=== PATIENT | female | born 1990 | race Caucasian/White ===

== ENCOUNTER 2022-11-27 10:15 | Outpatient (RCR) | payer OTHER, SELFPAY ==
--- NOTE | 2022-09-21 17:03 | BUPTOPEVAL1 ---
Assessment and note entered by Kaitlin Arauz, PT Evaluation Information Diagnosis mid thoracic strain Onset March Subjective Information Pt was lifting and was rounded in the shoulders due to size of lift Reported Pain Level Pain Score 2: Self Report Assessment PT Clinical Summary Pt presents w/ c/o persistent back pain after lifting approx 6 months ago. Pt has hx of leg length discrepancy has been wearing a lift to correct for years. Today demos abnormal alignment in sitting and standing, muscle spasms and tenderness sean rhomboids, flat thoracic spine with possible anterolisthesis of T7, anterior tilted pelvis, decreased core musculature. Pt will benefit from therapy in order to address deficts, and improve discomfort to return to her normal PLOF. Plan of Care Interventions Check Out for Orthotic/Pr,Electrical Stimulation, Manual Therapy,Neuro Re-education,Patient/ Caregiver Educati,Therapeutic Activities, Therapeutic Exercise,Ultrasound PT Services Indicated Yes Treatment Frequency and 1-2x weekly x 4 weeks Duration These treatments will address the objective and functional deficits as defined above. The patient will be advanced safely and appropriately in order for the patient to progress towards his/her prior level of function. Additional exercises will be introduced and as well as a comprehensive home exercise program upon discharge, if needed, ?to ensure carryover of functional gains achieved in the clinic. This treatment plan has been reviewed and agreement upon by the patient.
--- NOTE | 2022-10-18 13:11 | PTOPPROG ---
Assessment and note entered by Kaitlin Arauz, PT Assessment Status Progress Report Diagnosis mid thoracic strain Onset March Subjective Information Reports has not had to take pain medication in this last week Reports also was doing some step aerobics modified UEs and did well. Still having difficulty with lifting at work. Reports overhead activities is fatigued but not pain Has slept better the last two nights, finding that laying on her sides and back is ok. Feels is 70-80% improved overall doing her therapy exercises improves discomfort Assessment PT Clinical Summary Pt has attended therapy consistently for her mid- thoracic back strain. She reports feeling 75%-80% improved overall, has had to take less pain medication and reports is sleeping better last two nights as well. Cont to report fatigue with UE activities, and has discomfort with lifting required for her job. Cont to demo T4 rotating vertebra, but today reduces more easily, demo's less rhomboid spasm. Pt appears to be making progress however due to her high level of activity and strength required for her normal activities, therapy is requires to continue to return her to her fullest functional level without pain. Plan of Care Interventions Electrical Stimulation,Hot Pack/Cold Pack,Manual Therapy,Patient/Caregiver Educati,Therapeutic Activities,Therapeutic Exercise,Self-Care/Home Management,Other Other Interventions taping PT Services Indicated Yes Treatment Frequency and 1x weekly x 6 visits Duration These treatments will address the objective and functional deficits as defined above. The patient will be advanced safely and appropriately in order for the patient to progress towards his/her prior level of function. Additional exercises will be introduced and as well as a comprehensive home exercise program upon discharge, if needed, ?to ensure carryover of functional gains achieved in the clinic. This treatment plan has been reviewed and agreement upon by the patient.
--- NOTE | 2022-11-27 13:48 | PTOPPROG ---
Assessment and note entered by Yun Lay, PT, DPT Evaluation Information Assessment Status Progress Diagnosis mid thoracic strain Onset March Subjective Information Pt states initial she had pain all of the time, she states now it feels like her muscles are more calm. She states she still has some good days and bad days. She states she has returned to taking medication d/t increases in pain. She thinks the increase in pain is d/t an increase in her activity. She states her pain has been dull and achy for a long time now, she now reports a burning sensation with minor alterations in the sensation of her L arm. Assessment PT Clinical Summary The patient presents to therapy today for her progress report following 9 visits of skilled therapy to treat her thoracic pain. Overall she reports an improvement in her pain but not to where she would like to be. She was educated on the importance of back and trunk strength to support upright posture. She was educated on different stabilization techniques as well as exercises to strengthen her upper back. Pt states she would like to try these exercises on her own for a while prior to deciding if she needs to continue regularly scheduled therapy. Plan of Care Interventions Electrical Stimulation,Hot Pack/Cold Pack,Manual Therapy,Patient/Caregiver Educati,Therapeutic Activities,Therapeutic Exercise,Self-Care/Home Management,Other PT Services Indicated Yes Treatment Frequency and to follow up in 1 month if needed Duration These treatments will address the objective and functional deficits as defined above. The patient will be advanced safely and appropriately in order for the patient to progress towards his/her prior level of function. Additional exercises will be introduced and as well as a comprehensive home exercise program upon discharge, if needed, ?to ensure carryover of functional gains achieved in the clinic. This treatment plan has been reviewed and agreement upon by the patient.
== END 2022-12-19 23:59 | disposition home or self-care (01) ==
LOC: ANHGOSHPT 10:15
PROVIDERS: PCP Internal Medicine; Visit Provider Internal Medicine
DX: S23.3XXD Sprain of ligaments of thoracic spine, subsequent encounter (principal)
CPT/HCPCS: 97014; 97110; 97112; 97140; 97161; 97530; G0283

== ENCOUNTER 2023-10-06 08:34 | Emergency (ER) | payer OTHER, SELFPAY ==
[2023-10-06 08:44] VITALS: BP 118/77; PULSE 85; RESP 16; TEMP 37; O2SAT 100
--- NOTE | 2023-10-06 09:01 | ED.URI ---
HPI - URI/Sore Throat General Stated Complaint: Headache/Loss Vison/Loss Balance History of Present Illness HPI Narrative: patient presents with a 1 day history of a pain behind her left eye. Patient does not have any history of migraines. Patient states this is the worst headache of her life . Patient states yesterday she lost vision in her left eye and had dizziness. Patient denies any toe symptoms at present. Patient is not taking anything [id number] for her symptoms. Patient has no history of headaches or migraines. Related Data Home Medications Medication Instructions Recorded Confirmed copper 380 square mm intrauterine 1 device intrauterine ONCE 10/06/23 10/06/23 device (ParaGard T 380A) Allergies Allergy/AdvReac Type Severity Reaction Status Date / Time No Known Allergies Allergy Unknown Verified 10/06/23 09:04 Review of Systems Review of Systems: CONSTITUTIONAL: Denies fever, chills, or sweats. EYES: Denies visual changes, redness, or discharge. ENT: Denies rhinorrhea, congestion, sore throat, or otalgia. CARDIOVASCULAR: Denies chest pain, palpitations, or edema. RESPIRATORY: Denies cough or dyspnea. GASTROINTESTINAL: Denies abdominal pain, nausea, vomiting, or diarrhea. GENITOURINARY: Denies dysuria or hematuria. SKIN: Denies rash or itching. MUSCULOSKELETAL: Denies back pain, joint pain, or myalgia. NEUROLOGIC: Denies headache, numbness, or weakness. PSYCHIATRIC: Denies anxiety or depression. [facility] Past Medical History Medical History Anxiety Depression Encounter for counseling regarding contraception Encounter for insertion of ParaGard IUD Premenstrual dysphoric disorder Vaginal delivery Surgical History Surgical History S/P dilation and curettage Family History Family History Father Family history of elevated blood lipids Grandparent Diabetes mellitus Other Family history of coronary artery disease Social History Social History Smoking status: Never smoker Second hand tobacco smoke exposure: No Alcohol intake: former Comments At time of signature, agree with nursing past medical, surgical, social and family history. There is no relevant family history pertinent to the presenting complaint Exam Narrative: GENERAL: Well-appearing, well-nourished, and in no acute distress. HEAD: Normocephalic, atraumatic. EYES: PERRLA and EOMI. Patient reports pain behind her left eye ENT: Nares clear, no rhinorrhea or epistaxis. Mucous membranes moist. NECK: Supple. CHEST: Clear to auscultation. No respiratory distress. HEART: Regular rate and rhythm. No murmur heard. Normal peripheral pulses. ABDOMEN: Soft, nontender, nondistended, normal active bowel sounds. EXTREMITIES: Normal range of motion. No edema. SKIN: Warm, dry, no rash. NEURO: No focal deficits. Alert and oriented x3. SPEECH IS CLEAR. NO LANGUAGE DEFICITS. CRANIAL NERVES: PUPILS EQUAL, ROUND, AND REACTIVE TO LIGHT. VISUAL WEN FULL. EXTRA-OCULAR MOVEMENTS INTACT. NO NYSTAGMUS NOTED. FACIAL SENSATION INTACT TO LIGHT TOUCH. FACIAL MOVEMENT FULL AND SYMMETRIC. PALATE MIDLINE. TONGUE MIDLINE, MOVING EQUALLY IN BOTH DIRECTIONS. UVULA IS MIDLINE. SHOULDER SHRUG EQUAL ON BOTH SIDES. BILATERAL HAND GRASP 5/5. GAIT NORMAL. HEEL TO TOE AND TANDEM WALK NORMAL. FINGER TO NOSE NORMAL. NEG ROMBERG. [place] Coma Scale Eye Opening: Spontaneous 4 [place] Coma Scale Motor: Obeys Commands 6 [place] Coma Scale Verbal: Oriented 5 [place] Coma Scale Total 15 Course Course Level of Care: Express Care Visit Vital Signs Vital signs: Vital Signs Temperature 37.0 C 10/06/23 08:44 Pulse Rate 85 10/06/23 08:44 Respiratory Rate 16 10/06/23 08:44 Blood Pressure 118/77 10/06/23
== END 2023-10-06 09:15 | disposition short-term general hospital (02) ==
PROVIDERS: Emergency Provider Nurse Practitioner Family
DX: R51.9 Headache, unspecified (principal)
CPT/HCPCS: 99213; G0463

== ENCOUNTER 2023-11-14 12:30 | Outpatient (RCR) | payer OTHER, SELFPAY ==
--- NOTE | 2023-10-08 16:56 | PTOPEVAL1 ---
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 Had sharp pain initially in her upper back in rib area. In July of 2022 she had an incident where she had a shocking sensation in her spine and has since had it on and off, especially when driving. Does not feel comfortable with hands on top of steering wheel. Did a little bit of therapy and was feeling fairly good overall. She had however stopped all extracurricular activity outside of work. She has not been playing volleyball or independently exercising. After [place] of this year she started some weight loss to challenge herself. Started running routine and ran 2 miles. Was not originally painful but developed over course of the week. Reported Pain Level Pain Score 1: Self Report Assessment PT Clinical Summary Patient presents with thoracic, hip, and cervical mobility deficits. She demonstrates soft tissue limitation and poor thoracic mobilization. Will benefit from skilled therapy to address these deficits to mobilize posterior chain, promote postural strength, and reduce anterior restriction . Plan of Care Interventions Electrical Stimulation,Manual Therapy,Mechanical Traction,Therapeutic Activities,Therapeutic Exercise PT Services Indicated Yes Treatment Frequency and 1-2x/week for 8 visits Duration These treatments will address the objective and functional deficits as defined above. The patient will be advanced safely and appropriately in order for the patient to progress towards his/her prior level of function. Additional exercises will be introduced and as well as a comprehensive home exercise program upon discharge, if needed, ?to ensure carryover of functional gains achieved in the clinic. This treatment plan has been reviewed and agreement upon by the patient.
--- NOTE | 2023-10-08 16:56 | OPREHPOC ---
Outpatient Therapy Plan of Care This is a Multidisciplinary Plan of Care that may contain components documented by all disciplines (PT, OT, and ST.) PT Problem 1 PT Problem #1 Knowledge Deficit PT Goal 1 Goal [place] with HEP Target Visit 4 PT Problem 2 PT Problem #2 Pain PT Goal 1 Goal Report no pain with running activity greater than 1/2 mile PT Problem 3 PT Problem #3 Impaired Flexibility PT Goal 1 Goal Demonstrate 65 degrees of edwin cervical rotation for improve facet glide and reduced muscle restriction Target Visit 8 PT Goal 2 Goal Demonstrate -25 degrees edwin of hamstring restriction to reduce posterior chain resrtriction Target Visit 8 PT Problem 4 PT Problem #4 Impaired Strength PT Goal 1 Goal Improve L shoulder girdle strength to 4+/5 to improve stability with ADL activity Target Visit 8
--- NOTE | 2023-11-14 14:05 | PTOPDC ---
Assessment and note entered by Enrico Hernandez, PT Evaluation Information Assessment Status Discharge Diagnosis Thoracic spine pain Onset March 2022 Subjective Information Reports that she continues to function having both good days and bad days. States that she has had more good than bad, but emphasis on strengthening of periscapular always seems to aggravate her pain . We have emphasized a mobility program for her thoracic and cervical spine as well as hips and she feels comfortable trying it for senior living approach. Reported Pain Level Pain Score 1: Self Report Pain Score 1: Self Report Assessment PT Clinical Summary Patient has seen improvement in cervical mobility and gross spinal mobility. Her exercise program for home is centered around maximizing thoracic mobility and she demonstrate compliance and comfort with it. Patient is suitable for discharge to [facility] at this time. Plan of Care PT Services Indicated D/C to [facility]
--- NOTE | 2023-11-14 14:05 | OPREHPOC ---
Outpatient Therapy Plan of Care This is a Multidisciplinary Plan of Care that may contain components documented by all disciplines (PT, OT, and ST.) PT Problem 1 PT Problem #1 Knowledge Deficit PT Goal 1 Goal [place] with HEP Target Visit 4 Progress Met PT Problem 2 PT Problem #2 Pain PT Goal 1 Goal Report no pain with running activity greater than 1/2 mile Progress Met PT Problem 3 PT Problem #3 Impaired Flexibility PT Goal 1 Goal Demonstrate 65 degrees of edwin cervical rotation for improve facet glide and reduced muscle restriction Target Visit 8 Progress Met PT Goal 2 Goal Demonstrate -25 degrees edwin of hamstring restriction to reduce posterior chain resrtriction Target Visit 8 Progress Met PT Problem 4 PT Problem #4 Impaired Strength PT Goal 1 Goal Improve L shoulder girdle strength to 4+/5 to improve stability with ADL activity Target Visit 8 Progress Partially Met
== END 2023-12-02 08:37 | disposition home or self-care (01) ==
LOC: ANHPT 12:30
PROVIDERS: Visit Provider Nurse Practitioner Adult Health
DX: M54.6 Pain in thoracic spine (principal)
CPT/HCPCS: 97110; 97112; 97140; 97161; 97530

== ENCOUNTER 2025-03-26 09:00 | Emergency (ER) | payer OTHER, SELFPAY ==
--- NOTE | ~2025-03-26 | XR_ITS ---
EXAM/PROCEDURE: XR ribs RT 2V w CXR 2V - 03/26/2025 9:22 CDT HISTORY: 34 years old Female with POST FALL ON STEPS, POST/LAT PAIN TECHNIQUE: Four view(s) of the chest. COMPARISON: None available. FINDINGS: LUNGS/ PLEURA: No focal consolidation. No appreciable pneumothorax or large pleural effusion. HEART/ MEDIASTINUM: Heart appears normal in size. BONES: No displaced rib fractures seen. OTHER: Visualized upper abdomen is unremarkable. IMPRESSION: No acute process. Reviewed, dictated and finalized at location A. IMPRESSION: No acute process.
--- OUTSIDE RECORDS SUMMARY | 2025-03-26 09:04 | XMS_ITS | Clinical Summary ---
Author Organization [facility] Address [address] [place] [address] Phone Care Team Providers Care Table And Desk Finisher Name Role Phone Emilee Campa NP Primary Care Provider [phone] Henri Gregory MD Unavailable [phone] Allergies Active Allergy Reactions Criticality Noted Date Comments Iodinated Contrast Media Flushing (skin) Low 2022 Medications cyclobenzaprine (FLEXERIL) 10 mg tabletIndications: Muscle Spasm,thoracic pain Take 1 tablet (10 mg total) by mouth nightly as needed for muscle spasms 14 tablet 08/29/20 23 Active Additional Information Patient not taking.Reported on 01/11/2025 Vienva 0.1-20 mg-mcg per tablet Take 1 tablet by mouth daily 10/05/19 25 Active ondansetron ODT (ZOFRAN-ODT) 4 mg disintegrating tabletIndications: Nausea and vomiting, unspecified vomiting type Take 1 tablet (4 mg total) by mouth every 8 (eight) hours as needed for nausea or vomiting 21 tablet 10/07/19 25 Active Additional Information Patient not taking.Reported on 01/11/2025 sertraline (ZOLOFT) 50 mg tabletIndications: PMDD (premenstrual dysphoric disorder) Take 1 tablet (50 mg total) by mouth daily 90 tablet 10/16/19 25 Active Active Problems Problem Noted Date Diagnosed Date IUD (intrauterine device) in place 05/25/2024 Assessment & Plan (05/25/2024 1:34 PM CDT): -copper ParaGard in place -patient will be having this removed soon because she is having prolonged and frequent menstrual cycles Chronic bilateral thoracic back pain 08/29/2023 Assessment & Plan (08/29/2023 9:08 AM TUGBOAT ENGINEER): Chronic pain- worsening Ordered MRI without contrast of thoracic spine Obtain records from chiropractors office for x-ray reports Ordered PT consult Ordered cyclobenzaprine 10 mg- take 1 tablet at HS prn x 14 days Follow up with pcp in 3 months Ice and heat therapy prn Continue to monitor PMDD (premenstrual dysphoric disorder) Assessment & Plan (05/25/2024 1:34 PM CDT): -chronic, improving -continue on sertraline 50 mg daily Patient reiterated no suicidal thoughts at this time; take medication as directed; contact 911 and go to the ER if becomes suicidal; discussed side effects of medication with patient; encouraged healthy diet and exericise; encouraged patient to see a counselor Assessment & Plan (05/02/2023 10:24 AM CDT): Patient reiterated no suicidal thoughts at this time; take medication as directed; contact 911 and go to the ER if becomes suicidal; discussed side effects of medication with patient; encouraged healthy diet and exericise; encouraged patient to see a counselor -chronic, improving -continue on buspirone 15 mg 1/2 tablet up to 3 times daily as needed prior to her menstrual cycle. Discussed with patient that if this does not continue to help her on her menstrual cycles, we can try a low dose of escitalopram daily at the beginning of her symptom onset until a few days after her menstrual cycles stops. Discussed with patient that the medication can be dosed daily, but she reports she does not adhere well to daily medication. -follow up in 2 months or sooner as needed Assessment & Plan (04/11/2023 11:03 AM CDT): Patient reiterated no suicidal thoughts at this time; take medication as directed; contact 911 and go to the ER if becomes suicidal; discussed side effects of medication with patient; encouraged healthy diet and exericise; encouraged patient to see a counselor -chronic, not at/near goal -decrease her buspirone 15 mg 1/2 tablet up to 3 times daily as needed prior to her menstrual cycle -discussed with patient that if this does not help, we could trial an SSRI, such as escitalopram for the 14 days leading up to her menstrual cycle every month. Discuss with patient's medication can be dosed daily, but patient reports she does not adhere well to daily medication. -follow up in 3 weeks BMI 28.0-28.9,adult 04/11/2023 Assessment & Plan (01/15/2025 3:23 PM CDT): -chronic, not at/near goal goal BMI <25 Healthy, high-protein, lower carbohydrate, lower fat lifestyle and exercise for 150min/week recommended Recommend tracking everything you put in your mouth on an lucretia like [employer] Hand Measurements: A fist or cupped hand = 1 cup 1 cup = 1 -2 servings of fruit juice 1 oz. of cold cereal 2 oz. of cooked cereal, rice or pasta 8 oz. of milk or yogurt A thumb = 1 oz. of cheese Consuming low-fat cheese helps you meet the required servings from the milk, yogurt and cheese group. 1 oz. of low-fat cheese counts as 8 oz. of milk or yogurt. Handful = 1-2 oz. of snack food Thumb tip = 1 teaspoon Keep high-fat foods, such as peanut butter and mayonnaise, at a minimum. One teaspoon is equal to the end of your thumb, from the knuckle up. Three teaspoons equals 1 tablespoon. Palm = 3 oz. of meat Choose lean poultry, fish, shellfish and beef. One palm size portion equals 3 oz. for an adult and 1 -2 oz. for a child under 5. 1 tennis ball or a fist= 1/2 cup of fruit and vegetables Healthy diets include a variety of colorful fruits and vegetables every day. The secret to serving size is in your hand. Snacking can add up. Because hand sizes vary, compare your fist size to an actual measuring cup. Assessment & Plan (05/25/2024 1:34 PM CDT): -chronic, stable goal BMI <30 Healthy, high-protein, lower carbohydrate, lower fat lifestyle and exercise for 150min/week recommended Recommend tracking everything you put in your mouth on an lucretia like [employer] Hand Measurements: A fist or cupped hand = 1 cup 1 cup = 1 -2 servings of fruit juice 1 oz. of cold cereal 2 oz. of cooked cereal, rice or pasta 8 oz. of milk or yogurt A thumb = 1 oz. of cheese Consuming low-fat cheese helps you meet the required servings from the milk, yogurt and cheese group. 1 oz. of low-fat cheese counts as 8 oz. of milk or yogurt. Handful = 1-2 oz. of snack food Thumb tip = 1 teaspoon Keep high-fat foods, such as peanut butter and mayonnaise, at a minimum. One teaspoon is equal to the end of your thumb, from the knuckle up. Three teaspoons equals 1 tablespoon. Palm = 3 oz. of meat Choose lean poultry, fish, shellfish and beef. One palm size portion equals 3 oz. for an adult and 1 -2 oz. for a child under 5. 1 tennis ball or a fist= 1/2 cup of fruit and vegetables Healthy diets include a variety of colorful fruits and vegetables every day. The secret to serving size is in your hand. Snacking can add up. Because hand sizes vary, compare your fist size to an actual measuring cup. Assessment & Plan (05/02/2023 10:24 AM CDT): HPI: Condition is stable goal BMI <30 A&P: Healthy, high-protein, lower carbohydrate, lower fat lifestyle and exercise for 150min/week recommended Recommend tracking everything you put in your mouth on an lucretia like [employer] -recommend aiming for 1,300 or 1,400 calories daily Hand Measurements: A fist or cupped hand = 1 cup 1 cup = 1 -2 servings of fruit juice 1 oz. of cold cereal 2 oz. of cooked cereal, rice or pasta 8 oz. of milk or yogurt A thumb = 1 oz. of cheese Consuming low-fat cheese helps you meet the required servings from the milk, yogurt and cheese group. 1 oz. of low-fat cheese counts as 8 oz. of milk or yogurt. Handful = 1-2 oz. of snack food Thumb tip = 1 teaspoon Keep high-fat foods, such as peanut butter and mayonnaise, at a minimum. One teaspoon is equal to the end of your thumb, from the knuckle up. Three teaspoons equals 1 tablespoon. Palm = 3 oz. of meat Choose lean poultry, fish, shellfish and beef. One palm size portion equals 3 oz. for an adult and 1 -2 oz. for a child under 5. 1 tennis ball or a fist= 1/2 cup of fruit and vegetables Healthy diets include a variety of colorful fruits and vegetables every day. The secret to serving size is in your hand. Snacking can add up. Because hand sizes vary, compare your fist size to an actual measuring cup. Assessment & Plan (04/11/2023 11:05 AM CDT): HPI: Condition is stable goal BMI <30 A&P: Healthy, high-protein, lower carbohydrate, lower fat lifestyle and exercise for 150min/week recommended Recommend tracking everything you put in your mouth on an lucretia like [employer] Hand Measurements: A fist or cupped hand = 1 cup 1 cup = 1 -2 servings of fruit juice 1 oz. of cold cereal 2 oz. of cooked cereal, rice or pasta 8 oz. of milk or yogurt A thumb = 1 oz. of cheese Consuming low-fat cheese helps you meet the required servings from the milk, yogurt and cheese group. 1 oz. of low-fat cheese counts as 8 oz. of milk or yogurt. Handful = 1-2 oz. of snack food Thumb tip = 1 teaspoon Keep high-fat foods, such as peanut butter and mayonnaise, at a minimum. One teaspoon is equal to the end of your thumb, from the knuckle up. Three teaspoons equals 1 tablespoon. Palm = 3 oz. of meat Choose lean poultry, fish, shellfish and beef. One palm size portion equals 3 oz. for an adult and 1 -2 oz. for a child under 5. 1 tennis ball or a fist= 1/2 cup of fruit and vegetables Healthy diets include a variety of colorful fruits and vegetables every day. The secret to serving size is in your hand. Snacking can add up. Because hand sizes vary, compare your fist size to an actual measuring cup. Resolved Problems Problem Noted Date Diagnosed Date Resolved Date Precordial pain 01/30/2014 04/11/2023 Overview (12/19/2016): PRECORDIAL PAIN Encounters Date Type Department Care Team Description 01/11/2025 1:00 PM CDT Office Visit [facility] Primary Care at [address] [phone] Emilee Campa NP Episodic lightheadedness (Primary Dx); Fall, initial encounter; Scalp cyst; BMI 28.0-28.9,adult 01/11/2025 Orders Only [facility] Primary Care at [address] [phone] Emilee Campa NP Scalp cyst (Primary Dx) from Last 3 Months Immunizations Immunization Administration Dates Next Due Influenza, Quadrivalent, Spl it, Preservative Free, Intramuscular 08/05/2023,07/03/2022,07/24/2021 Influenza, Trivalent, Preser vative Free, Intramuscular 07/16/2024 Influenza, Unspecified 05/25/2024(Deferred: Emily ent Refused) Tdap 10/23/2015 Family History Medical History Relation Name Comments Coronary artery disease Father Heart attack Father Hyperlipidemia Father high blood pressure Father Coronary artery disease Mother Heart attack Mother Relation Name Status Comments Father Mother Social History Tobacco Use Types Packs/Day Years Used Date Smoking Tobacco: Never Passive Smoke Exposure: Never Smokeless Tobacco: Never Tobacco Cessation:Counseling Given: Not Answered AUDIT-C Answer Date Recorded Q1: How often do you have a drink containing alcohol? Never 05/25/2024 Q2: How many drinks containi ng alcohol do you have on a typical day when you are drinking? Patient does not drink Q3: How often do you have si x or more drinks on one occasion? Never 05/25/2024 PHQ-2 Answer Date Recorded PHQ-2 Total Score (If total score is 3 or more points, staff should administer the PHQ-9) 1 01/11/2025 Personal Safety Answer Date Recorded Have you ever been in or are you currently in a harmful physical or emotional relationship or is someone making you feel afraid or unsafe? Denies 10/06/2023 Comments No Sex and Gender Information Value Date Recorded Sex Assigned at Not on file Legal Sex Female 2:12 AM TUGBOAT ENGINEER Gender Identity Not on file Sexual Orientation Not on file Obstetrics History Last Filed Vital Signs Vital Sign Reading Time Taken Comments Blood Pressure 119/79 01/11/2025 12:51 PM CDT Pulse 82 01/11/2025 12:51 PM CDT Temperature 36.4 C (97.5 F) 01/11/2025 12:51 PM CDT Respiratory Rate 18 01/11/2025 12:51 PM CDT Oxygen Saturation 98% 01/11/2025 12:51 PM CDT Inhaled Oxygen Concentration - - Weight 76.7 kg (169 lb) 01/11/2025 12:51 PM CDT Height 162.9 cm (5' 4.13) 01/11/2025 12:51 PM C DT Body Mass Index 28.89 01/11/2025 12:51 PM CDT Plan of Treatment Health Maintenance Due Date Last Done Comments Cervical Cancer Screening 1990 Covid-19 Vaccine ( season) 2024 06/01/2022, 06/23/2021, 09/25/2020, Additional history exists Regular Well Visit/Exam 18-64 05/25/2025 05/25/2024, 05/02/2023 DTaP/Tdap/Td Vaccine (2 - Td or Tdap) 10/23/2025 10/23/2015 Depression Screening 01/11/2026 01/11/2025, 10/07/2024, 05/25/2024, Additional history exists Hepatitis B Screening Completed 05/25/2024 Hepatitis C Screening Completed 05/25/2024 Influenza Vaccine Completed 07/16/2024, , 07/03/2022, Additional history exists HPV Vaccines Aged Out No longer eligi ble based on patient's age to complete this topic Pneumococcal vaccine <65 Aged Out No longer eligible based on patient's age to complete this topic Varicella Vaccines Discontinued Procedures Procedure Name Priority Date/Time Associated Diagnosis Comments HEPATITIS C ANTIBODY Routine 05/25/2024 1:42 PM CDT Encounter for hepatitis C screening test for low risk patient from Last 3 Months or Most Recently Relevant to Health Maintenance Results * Hepatitis C antibody Blood (05/25/2024 1:42 PM CDT) Hep C Ab Nonreactive Nonreactive Comment: Interpretive Data Nonreactive: Antibodies to HCV not detected. Does NOT exclude the possibility of recent exposure to HCV. Equivocal: Equivocal for HCV antibodies. Supplemental molecular testing will be automatically performed to determine infection status in accordance with current CDC screening recommendations. Reactive: Positive for HCV antibodies. This may represent current or past HCV infection. Supplemental molecular testing will be automatically performed to determine current infection status in accordance with current CDC screening recommendations. Interpretive data was last revised on 2019. Testing performed by: , [address] [place] [address]., [id number] Blood 05/25/2024 1:42 PM CDT 05/25/2024 9:04 PM CDT Emilee Campa NP LAB MICROBIOLOGY - GENERAL O RDERABLES Edited Result - Final [facility] [address] [facility] [place] [address] from Last 3 Months or Most Recently Relevant to Health Maintenance Insurance [employer] Care Teams Table And Desk Finisher Relationship Specialty Start Date End Date Emilee Campa NP [address] [facility] [address] [place] [address] PCP - General Family Medicine 04/11/23 Henri Gregory MD [address] [place] [address] Referring Physician Obstetrics and Gynecology 05/02/23
--- OUTSIDE RECORDS SUMMARY | 2025-03-26 09:04 | XMS_ITS | Referral Summary ---
Author Organization [facility] Address [address] [place] [address] Phone Care Team Providers Care Business Management Analyst Name Role Phone Emilee Campa NP Primary Care Provider [phone] Henri Gregory MD Unavailable [phone] Encounters Date Type Department Care Team Description 01/11/2025 Orders Only [facility] Primary Care at [address] [address] Emilee Campa NP Scalp cyst (Primary Dx) 01/11/2025 1:00 PM CDT Office Visit [facility] Primary Care at [address] [address] Emilee Campa NP Episodic lightheadedness (Primary Dx); Fall, initial encounter; Scalp cyst; BMI 28.0-28.9,adult from Last 3 Months Allergies Active Allergy Reactions Criticality Noted Date [...] 08/29/2023 Assessment & Plan (08/29/2023 9:08 AM FIRE INVESTIGATOR): Chronic pain- worsening Ordered MRI without contrast [...] in your mouth on an lucretia like [employer] Hand Measurements: A fist or cupped hand [...] you put in your mouth on an lcuretia like [employer] Hand Measurements: A fist or cupped hand [...] in your mouth on an lucretia like [employer] -recommend aiming for 1,300 or 1,400 calories [...] in your mouth on an lucretia like [employer] Hand Measurements: A fist or cupped hand [...] pain 01/30/2014 04/11/2023 Overview (12/19/2016): PRECORDIAL PAIN Immunizations Immunization Administration Dates Next Due Influenza, Quadrivalent, Spl it, Preservative Free, Intramuscular 08/05/2023,07/03/2022,07/24/2021 Influenza, Trivalent, Preser vative Free, Intramuscular 07/16/2024 Influenza, Unspecified 05/25/2024(Deferred: Emily ent Refused) Tdap 10/23/2015 Social History Tobacco Use Types Packs/Day Years [...] on file Legal Sex Female 2:12 AM FIRE INVESTIGATOR Gender Identity Not on file Sexual Orientation Not on file Last Filed Vital Signs Vital Sign Reading [...] 01/11/2025 12:51 PM CDT Plan of Treatment Not on file Procedures Procedure Name Priority Date/Time Associated Diagnosis [...] last revised on 2019. Testing performed by: [facility], [address] [place] [address], [place]., [address] Blood 05/25/2024 1:42 PM CDT 05/25/2024 9:04 PM CDT Emilee Campa NP LAB MICROBIOLOGY - GENERAL O RDERABLES Edited Result - Final [facility] [address] [facility] [place] [address] from Last 3 Months or Most Recently Relevant to Health Maintenance Insurance [employer] [facility]/PPO Address: [address] [place] [address] [employer] [facility]O Address: [address] [place] [id number] Care Teams Business Management Analyst Relationship Specialty Start Date End Date Emilee Campa NP [address] [address] PCP - General Family Medicine 04/11/23 Henri Gregory MD [address] [facility] [address] [facility] [address] [place] [address] Referring Physician Obstetrics and Gynecology 05/02/23
[2025-03-26 09:06] VITALS: BP 134/74; PULSE 87; RESP 16; TEMP 36.3; O2SAT 100
--- NOTE | 2025-03-26 09:22 | ED_ITS ---
HPI - Fall General Chief Complaint: Fall Stated Complaint: Fall Injury/Right Side Pain Time Seen by Provider: 03/26/25 09:10 Source: patient and RN notes reviewed Mode of arrival: ambulatory Limitations: no limitations History of Present Illness HPI Narrative: 34-year-old female presents Express Care complaining of full from steps proximally 3 days ago. He says he slipped on stairs and fell on her the right side of her back hitting the back of her head. Patient is complaining of right posterior rib pain hurts worse with a deep breath or certain movements with her right arm. Patient denies any loss of consciousness, headaches, neck pain, back pain, or any other injuries. Patient denies being on any blood thinners. Patient denies any headaches, blurry vision, dizziness, lightheadedness, chest pain, shortness of breath, nausea, vomiting, or any other symptoms. Patient has tried Tylenol and ibuprofen for pain with some relief. Related Data Allergies Allergy/AdvReac Type Severity Reaction Status Date / Time No Known Allergies Allergy Unknown Verified 07/23/24 10:04 Review of Systems Review of Systems: CONSTITUTIONAL: Denies fever, chills, or sweats. EYES: Denies visual changes, redness, or discharge. ENT: Denies rhinorrhea, congestion, sore throat, or otalgia. CARDIOVASCULAR: Denies chest pain, lightheadedness, dizziness, palpitations, or edema. RESPIRATORY: Denies cough, hemoptysis, wheezing, or dyspnea. Possible pain with inspiration. GASTROINTESTINAL: Denies abdominal pain, nausea, vomiting, or diarrhea. GENITOURINARY: Denies dysuria or hematuria. SKIN: Denies rash or itching. MUSCULOSKELETAL: Denies back pain, neck pain, joint pain, or myalgia. Positive for right rib pain. NEUROLOGIC: Denies headache, numbness, or weakness. PSYCHIATRIC: Denies anxiety or depression. All other systems reviewed are negative, except as documented in HPI. [facility] Past Medical History Medical History Encounter for insertion of ParaGard IUD Anxiety Premenstrual dysphoric disorder Encounter for counseling regarding contraception Vaginal delivery Depression Surgical History Surgical History S/P dilation and curettage Family History Family History Father Family history of elevated blood lipids Grandparent Diabetes mellitus Other Family history of coronary artery disease Social History Social History Smoking status: Never smoker Second hand tobacco smoke exposure: No Alcohol intake: former Comments At the time of my signature, I reviewed and agree with the nursing past medical, surgical, social, and family history. There is no relevant family history pertinent to the patient complaint. Exam Narrative: GENERAL: This is a well-nourished, well-developed adult, in no apparent distress. They are non ill-appearing, nontoxic appearing. HEAD: normocephalic, atraumatic. No raccoon eyes or Robles signs. EYES: Sclera clear/white. Conjunctiva normal. Vision is grossly intact. Extraocular movements intact. Pupils PERRLA EARS: External ears normal, auditory canals clear and without drainage, TMs normal without perforation. Hearing grossly intact. No hemotympanum bilaterally. NOSE: External nose normal with no obvious nasal discharge, nasal turbinates without redness, no rhinorrhea. No septal hematoma. THROAT: Mucous membranes moist, posterior pharynx clear, without erythema or swelling. Uvula midline. NECK: Neck supple, non-tender without lymphadenopathy, masses or thyromegaly. No cervical point tenderness, midline tenderness, crepitus, or step-offs. CARDIOVASCULAR: Regular rate and rhythm without murmurs, gallops, or rubs. CHEST WALL: Tenderness to palpation right posterior upper ribs. No flail chest segment, no paradoxical movements. No retractions or accessory muscle use. RESPIRATORY: Clear to auscultation. Breath sounds equal bilaterally. No wheezes, rales, or rhonchi. Respiratory rate normal, respiratory effort nonlabored, no respiratory distress SKIN: warm, Dry, intact with no suspicious lesions or rash, good texture and turgor. No bruising, injuries, wounds, or redness NEURO: awake, alert, and oriented to person, place and time. There were no obvious focal neurologic abnormalities. EXTREMITIES: No joint tenderness, effusion, or edema noted. BACK: Nontender without deformity. No CVA tenderness. No thoracic or lumbar point tenderness, no crepitus, or step-offs. Course Course Emergency Course: Portions of this record may have been created with voice recognition software Level of Care: Express Care Visit Vital Signs Vital signs: Vital Signs Temperature 97.3 F L 03/26/25 09:06 Pulse Rate 87 03/26/25 09:06 Respiratory Rate 16 03/26/25 09:06 Blood Pressure 134/74 03/26/25 09:06 Pulse Oximetry 100 03/26/25 09:06 Oxygen Delivery Room Air 03/26/25 09:06 Temperature 97.3 F L 03/26/25 09:06 Pulse Rate 87 03/26/25 09:06 Respiratory Rate 16 03/26/25 09:06 Blood Pressure 134/74 03/26/25 09:06 Pulse Oximetry 100 03/26/25 09:06 Oxygen Delivery Room Air 03/26/25 09:06 Reviewed MDM - Fall MDM Narrative Medical decision making narrative: [place] CT head injury/trauma rule score 0, CT of head unnecessary, low suspicion for significant head trauma. NEXUS criteria for C-spine imaging is a score 0, C-spine cleared, no imaging indicated. No pain, deformity, or tenderness to patient's neck, cervical, thoracic, or lumbar spine. Physical exam is reassuring. X-ray of ribs/lung showed no evidence of acute fractures or findings. Likely patient has rib contusion. Discussed physical exam findings. Patient given incentive spirometer. Advised supportive measures and signs/symptoms to go to the ER. Pt is appropriate for outpt treatment and f/u. Differential Diagnosis Differential diagnosis: Likely other (Rib fracture, rib contusion, pneumothorax, hemothorax, head injury) Lab Data Attestation: I reviewed the patient's lab results. Labs: Lab Results 03/26/25 Range/Units 09:23 POC Urine HCG, Qual Negative (Negative) Imaging Data Radiologist's impression: ITS Impressions Ribs w/Chest X-Ray 03/26/25 09:35 IMPRESSION: No acute process. Critical Care Time Critical Care Time Critical Care Time: No Discharge Plan Discharge Clinical Impression: Contusion of rib on right side Qualifiers: Encounter type: initial encounter Qualified Code(s): S29.8XXA - Other specified injuries of thorax, initial encounter Patient Disposition: Home Condition: Stable Instructions: Rib Contusion (ED) Additional Instructions: The x-ray of your ribs and lungs are negative for any fractures or acute findings. Is likely you have a rib contusion. Rib contusions will resolve on their own it may take up to 2-4 weeks to fully resolved. You may take Tylenol or ibuprofen as needed for pain. Please follow-up with PCP in 7 days for re- evaluation. Please use the incentive spirometer while awake every hour on the hour performing 10 deep breaths to prevent pneumonia. Please go to the ER if you develops any signs of pneumonia or any serious concerns such as fevers, chest pain, shortness of breath, cough, weakness, severe headaches, vision changes, nausea, vomiting, or any other concerns. Patient Language: Palestinian Prescriptions: No Action levonorgestrel-ethinyl estrad [Lutera (28)] 0.1-20 mg-mcg tablet 1 tablet PO DAILY Qty: 84 4RF sertraline [Zoloft] 50 mg tablet 50 mg PO DAILY Qty: 90 4RF Follow-up/Referrals: PHYSICIAN NOT ON STAFF,NONSTAFF [Primary Care Provider] - Time of Disposition: 09:45
[2025-03-26 09:25] LABS: BEDSIDEPREGUCG Negative (Negative)
--- NOTE | 2025-03-26 09:51 | PC.NURSE ---
Incentive spirometer given and instructions for use.
== END 2025-03-26 09:52 | disposition home or self-care (01) ==
DX: S29.8XXA Other specified injuries of thorax, initial encounter (principal); W10.9XXA Fall (on) (from) unspecified stairs and steps, initial encounter
CPT/HCPCS: 71046; 71100; 81025; 99213; G0463